=== PATIENT | female | born 1940 | race Caucasian/White ===

== ENCOUNTER 2016-02-23 | Outpatient (CLI) | payer MEDICARE, OTHER | END 2016-02-23 19:41 | disposition critical access hospital (66) | CPT/HCPCS: A0425; A0427 ==

== ENCOUNTER 2016-02-23 19:56 | Observation (INO) | payer MEDICARE, OTHER ==
[2016-02-23] MEDS ORDERED: TETANUS/DIPHTHERIA/PERTUSSIS 0.5 ML SYRINGE IM ONE ×2 (20:28→20:52)
[2016-02-23] MEDS ORDERED: BUFFERED LIDOCAINE 10 ML SYRINGE ONE (20:49)
[2016-02-23] MEDS ORDERED: SODIUM CHLORIDE FLUSH 0.9% 10 ML SYRINGE IVP PRN (21:52)
[2016-02-23] MEDS ORDERED: HYDROcod/ACETAM 10 MG/325 MG TABLET PO PRN (21:52)
[2016-02-23] MEDS ORDERED: MIRTAZAPINE 15 MG TABLET PO PRN (21:52)
[2016-02-23] MEDS ORDERED: ONDANSETRON 4 MG/2 ML VIAL IVP PRN (21:52)
[2016-02-23] MEDS ORDERED: LORazepam 0.5 MG TABLET PO PRN ×2 (21:52)
[2016-02-23] MEDS ORDERED: HYDROcod/ACETAM 5/325 MG TABLET PO PRN (21:52)
[2016-02-23] MEDS ORDERED: ACETAMINOPHEN 325 MG TABLET PO PRN (21:52)
[2016-02-23] MEDS ORDERED: ATORVASTATIN 10 MG TABLET PO SCH (22:00)
[2016-02-23] MEDS ORDERED: QUEtiapine 25 MG TABLET PO SCH (22:00)
[2016-02-23] MEDS: SODIUM CHLORIDE FLUSH 0.9% 10 ML SYRINGE IVP SCH (23:43)
[2016-02-24] MEDS: SODIUM CHLORIDE FLUSH 0.9% 10 ML SYRINGE IVP SCH ×2 (06:14→14:36)
[2016-02-24] MEDS ORDERED: PANTOPRAZOLE 40 MG TABLET PO SCH (07:00)
[2016-02-24] MEDS ORDERED: levETIRAcetam 250 MG TABLET PO SCH (09:00)
[2016-02-24] MEDS ORDERED: DIGOXIN 125 MCG TABLET PO SCH (09:00)
[2016-02-24] MEDS ORDERED: THIAMINE 100 MG TABLET PO SCH (09:00)
[2016-02-24] MEDS ORDERED: POTASSIUM CHLORIDE 20 MEQ TABLET PO SCH (09:00)
[2016-02-24] MEDS ORDERED: POLYETHYLENE GLYCOL 3350 17 GM PACKET PO SCH (09:00)
[2016-02-24] MEDS ORDERED: risperiDONE 0.25 MG TABLET PO SCH (09:00)
[2016-02-24] MEDS ORDERED: PHENYTOIN ER 100 MG CAPSULE PO SCH (09:00)
[2016-02-24] MEDS ORDERED: FOLIC ACID 1 MG TABLET PO SCH (09:00)
[2016-02-24] MEDS ORDERED: LOSARTAN 50 MG TABLET PO SCH (09:00)
[2016-02-24] MEDS ORDERED: CARVEDILOL 3.125 MG TABLET PO SCH (09:00)
[2016-02-24] MEDS ORDERED: FUROSEMIDE 40 MG TABLET PO SCH (09:00)
== END 2016-02-24 16:34 | disposition home or self-care (01) ==
DX: T76.01XA Adult neglect or abandonment, suspected, initial encounter (principal); S01.01XA Laceration without foreign body of scalp, initial encounter; W01.198A Fall on same level from slipping, tripping and stumbling with subsequent striking against other object, initial encounter; Y92.002 Bathroom of unspecified non-institutional (private) residence as the place of occurrence of the external cause; F10.10 Alcohol abuse, uncomplicated; F03.91 Unspecified dementia, unspecified severity, with behavioral disturbance; I48.2 Chronic atrial fibrillation; I11.0 Hypertensive heart disease with heart failure; I50.22 Chronic systolic (congestive) heart failure; E78.5 Hyperlipidemia, unspecified; M19.90 Unspecified osteoarthritis, unspecified site; G89.29 Other chronic pain; G40.909 Epilepsy, unspecified, not intractable, without status epilepticus; Z79.01 Long term (current) use of anticoagulants; Z91.81 History of falling; Z86.73 Personal history of transient ischemic attack (TIA), and cerebral infarction without residual deficits; Z66 Do not resuscitate; Z96.642 Presence of left artificial hip joint
CPT/HCPCS: 12002; 36415; 70450; 80053; 80162; 80185; 83690; 83735; 84100; 85025; 85610; 90471; 90715; 97116; 97161; 99284; 99285; A9270; G0378; G0480; G8978; G8979